=== PATIENT | female | born 1980 | race Caucasian/White ===

== ENCOUNTER 2023-11-25 12:27 | Emergency (ER) | payer BC, SELFPAY ==
[2023-11-25 12:30] VITALS: BP 138/103
--- NOTE | 2023-11-25 12:57 | ED.GENMED ---
History of Present Illness
General
Chief Complaint: Fall
Time Seen by Provider: 11/25/23 12:56
Travel History
Have you had any contact with someone who has COVID-19?: No
Do you have any symptoms of coronavirus? Fever > 100 degrees, chills, cough, shortness of breath, sore throat, loss of taste or smell, muscle aches, or headache?: No
History of Present Illness
History of Present Illness:
HPI: Patient fell on the ice last night and complains of left shoulder pain. This is associated with some low back pain as well which she is not concerned about. She has no head or neck pain. She has no abdominal pain. She does have some pain
near the left shoulder that worsens when she takes a deep breath in. She has trouble moving the left shoulder due to pain.
EXAM:
GENERAL: Well appearing in mild distress favoring her left shoulder
HEENT: Moist oral mucosa
CARDIOVASCULAR: No murmurs, normal heart rate and rhythm, No chest wall tenderness
PULMONARY: No respiratory distress, breath sounds are clear and equal
ABDOMEN: Soft with no peritoneal signs, no tenderness
NEUROLOGIC: Excellent strength all extremities, no coordination deficits
PSYCHIATRIC: Appropriate mental status, normal insight and judgement
EXTREMITIES: There is tenderness at the left AC joint, left proximal humerus, and there is markedly decreased active range of motion at the left shoulder due to pain. She is distally NVI. She has no sensory deficits.
SKIN: No rash, no lesions
ED COURSE:
1 PM: I initially evaluated patient
NUMBER AND COMPLEXITY OF PROBLEMS ADDRESSED AT THE ENCOUNTER
� Chronic conditions affecting care: Denies any significant past medical history
� Acute Exacerbation and/or Progression of Chronic Illness: This is an acute problem
� Differential Diagnosis includes: AC sprain, clavicle fracture, proximal humerus fracture, pneumothorax
AMOUNT AND/OR COMPLEXITY OF DATA TO BE REVIEWED AND ANALYZED
� I performed an independent evaluation of and my interpretation is:
EKG:
CT:
X-rays: I personally reviewed x-rays and see some mild separation at the AC joint on the left but no sign of fracture or dislocation
Laboratory Studies:
Other:
� Review of other/old records: No old records available for review in [facility]
� Clinical information was obtained by an independent historian: I spoke to the at bedside
� Prescriptions/Medications Considered but not given: She currently declines analgesia
� Further testing considered but not performed:
RISK OF COMPLICATIONS AND/OR MORBIDITY OR MORTALITY OF PATIENT MANAGEMENT
� Social determinants of health affecting care: Lives at home.
� Discussion with other providers:
� Escalation of care including admission/observation vs risk of discharge considered: The patient was given a sling for comfort. Will obtain x-rays. The patient declines analgesia.
Phy Exam
Physical Exam
Physical Exam:
See HPI
Course
Orders/Labs/Results
Orders:
Orders
11/25/23 13:02
Splints/Slings/Crut- Treatment ONCE
Crutches: No
Sling to: Left Arm
11/25/23 13:03
CR Chest - 2 Views Urgent
Comment:
Reason For Exam: pleuritic L shoulder pain
Trauma Shoulder, Left CR [CR Shoulder, Trauma - Left] Urgent
Comment:
Reason For Exam: L shoulder trauma pain
Vital Signs
Initial and Last Documented VS:
Initial Vital Signs
Temp Pulse Resp BP Pulse Ox
99.6 F 138 18 138/103 99
11/25/23 12:30 11/25/23 12:30 11/25/23 12:30 11/25/23 12:30 11/25/23 12:30
Last Documented Vital Signs
Temp Pulse Resp BP Pulse Ox
99.6 F 138 18 151/118 99
11/25/23 12:30 11/25/23 12:30 11/25/23 12:30 11/25/23 14:10 11/25/23 12:30
*Critical Care Note
Total Time (30-74mins, 75-104mins- exclusive of procedures): Not Applicable
ED Attending Note
-
Portions of this chart may have been created with voice recognition software.� Occasional wrong word or��sound alike� substitutions may have occurred due to the inherent limitations of voice recognition software.
Discharge Plan
Departure
Patient Disposition: Home (Routine Discharge)
Date of Disposition: 11/25/23
Time of Disposition: 13:57
Patient with high blood pressure during this ER visit?: Yes
Discharge Problem:
Sprain of acromioclavicular ligament
Instructions: Shoulder Sprain (DC), BLOOD PRESSURE
Prescriptions:
No Action
No Current Medications
0
Referrals:
Basilio Ann MD [Active] - Follow up in 2-3 days
UNKNOWN - PT DOES,NOT KNOW [Family Provider] -
Activity Restrictions/Additional Instructions:
Discharge Motrin. I have given you the contact information for local orthopedist to follow-up with if needed.
Interventions
Interventions:
*Risk Screen - Suicide Last Done: 11/25/23 13:12
*Neglect/Abuse Screening Last Done: 11/25/23 13:12
ED- Fall Risk Assessment Last Done: 11/25/23 13:04
*ED COVID-19 Vaccine History Last Done: 11/25/23 13:03
*Nursing Disposition Last Done: 11/25/23 14:10
ED-Musculoskeletal Assessment Last Done: 11/25/23 13:07
ED- Neurological Assessment Last Done: 11/25/23 13:07
ED-Skin Assessment Last Done: 11/25/23 13:11
Discharge Date and Time
Discharge Date/Time: 11/25/23 14:12
[2023-11-25 13:03] VITALS: BMI 19.0
[2023-11-25 14:10] VITALS: BP 151/118
== END 2023-11-25 14:12 | disposition home or self-care (01) ==
LOC: EMR 12:27
PROVIDERS: EMERGENCY PHYSICIAN Emergency Medicine
DX: S43.52XA Sprain of left acromioclavicular joint, initial encounter (principal); W00.0XXA Fall on same level due to ice and snow, initial encounter
CPT/HCPCS: 99283; 71046; 73030